=== PATIENT | female | born 1965 | race Two or more races ===

== ENCOUNTER 2024-02-07 18:42 | Emergency (ER) | payer BC, OTHER ==
[~2024-02-07] VITALS: Ht 162.6 cm; Wt 64.0 kg
[2024-02-07 18:44] VITALS: BP 148/79; PULSE 80; RESP 16; TEMP 98; O2SAT 98
[2024-02-07] MEDS ORDERED: KETOROLAC 15MG/ML VIAL IM ONE (20:00)
== END 2024-02-07 20:01 | disposition left against medical advice (07) ==
LOC: ER 18:42
DX: M25.531 Pain in right wrist (principal)
CPT/HCPCS: 99283